=== PATIENT | female | born 1995 | race Caucasian/White ===

== ENCOUNTER 2017-09-01 00:44 | Emergency (ER) | payer OTHER ==
[2017-09-01 02:15] LABS: #Basophils 0.1 thou/uL (0.0-0.2); #Eosinphils 0.2 thou/uL (0.0-0.7); #Monocytes 1.1 thou/uL (0.11-0.59); #Neutrophils 6.8 thou/uL (1.40-6.50); %Basophils 0.5 % (0.0-1.0); %Eosinophils 1.7 % (0.0-10.0); %Lymphocytes 27.3 % (28.0-48.0); %Monocytes 9.6 % (0.0-4.0); %Neutrophils 60.9 % (31.0-61.0); Hemoglobin 14.3 g/dL (12.0-16.0); Mean Corpuscular HGB CONC 33.9 g/dL (32.0-36.0); Mean Corpuscular Hemoglobin 31.3 pg (25.0-35.0); Mean Corpuscular Volume 92.4 fl (77.0-87.0); Platelet Count 314 thou/uL (130-400); RBC Distribution Width 11.2 % (11.5-14.5); Red Blood Cell (RBC) Count 4.57 mill/uL (4.00-5.20); White Blood Cell (WBC) Count 11.1 thou/uL (4.8-10.8)
[2017-09-01] MEDS ORDERED: Acetaminophen 325 MG TAB ONE (02:27)
[2017-09-01 02:36] LABS: ALT (SGPT) 78 U/L (8-55); AST (SGOT) 43 U/L (5-34); Albumin 4.5 g/dL (3.5-5.0); Alkaline Phosphatase 65 U/L (40-150); Anion Gap 13 mmol/L (10-20); BUN (Urea Nitrogen) 8 mg/dL (7.0-18.7); Bilirubin, Total 0.3 mg/dL (0.2-1.2); Calc. Creatinine Clearance 0 mL/min (70-130); Calcium 9.5 mg/dL (7.8-10.44); Carbon Dioxide 24 mmol/L (22-29); Chloride 108 mmol/L (98-107); Estimated GFR-MDRD Greater than 90; Glucose 95 mg/dL (70-105); Magnesium 2.3 mg/dL (1.7-2.2); Protein, Total 7.5 g/dL (6.0-8.3); Sodium 141 mmol/L (136-145)
[2017-09-01 02:41] LABS: CKMB 0.9 ng/mL (0-6.6); Troponin I Less than 0.010 ng/mL (< 0.028)
[2017-09-01 04:45] LABS: Acetaminophen Less than 6.0 mcg/mL (10.0-30.0); Alcohol Less than 10 mg/dL (Less than 10); Salicylate Less than 8.0 mg/dL (15.0-30.0)
[2017-09-01] MEDS ORDERED: Ketorolac Tromethamine 30 MG/ML VIAL ONE (04:47)
[2017-09-01] MEDS ORDERED: Lorazepam 1 MG TAB ONE (04:47)
[2017-09-01 05:17] LABS: Base Excess-Venous -1.5 mmol/L (0 (+/- 2.5)); Bicarbonate (HCO3v) 22.6 mmol/L (1.0-85.0); CO2 Tension (PvCO2) 35.5 mmHg (41.0-51.0); Calcium, Ionized 1.07 mmol/L (1.12-1.32); Hemoglobin - Calc 15.4 g/dL (12.0-18.0); O2 Tension (PvO2) 89.4 mmHg (35.0-45.0); Potassium 3.8 mmol/L (3.4-4.7); T. Carbon Dioxide 23.7 mmol/L (1.0-85.0); pH (Venous) 7.412 (7.35-7.45); vO2 Saturation-calc 97.1 % (94-98)
[2017-09-01 05:35] LABS: Bilirubin Negative (Negative); Blood, Urine Negative (Negative); Clarity CLOUDY (Clear); Glucose, Urine (Dipstick) Negative (Negative); Leukocyte Moderate (Negative); Nitrite Negative (Negative); Protein, Urine (Dipstick) Negative (Neg-Trace); Specific Gravity, Urine 1.028 (1.002-1.036); pH, Urine 6.5 (5.0-9.0)
[2017-09-01 05:38] LABS: Bacteria/HPF 1+ HPF (None Seen); Hyaline Casts/LPF 0-3 HYALINE CAST LPF (0-3 Hyaline); Pathc Cast-AUWi Flag 0.58 (0-2.49); RBC/HPF 0-3 HPF (0-3); Squamous Epithelial 0-3 HPF (0-3)
[2017-09-01 05:44] LABS: Pregnancy Test - Urine (BHCG) Negative (Negative); Pregu Control Background? CLEAR/WHITE (CLR/WHITE); Pregu Control Bar Appear? YES (CONTROL BAR); Specific Gravity 1.028 (1.002-1.036)
[2017-09-01 05:46] LABS: Amphetamine Not Detected (NotDetected); Barbiturates Screen Not Detected (NotDetected); Benzodiazepine Screen Not Detected (NotDetected); Cocaine Metabolite Screen Not Detected (NotDetected); Crystals/HPF 1+ CA OXALATE HPF (Negative); Medtox Control Line Valid? VALID (VALID); Medtox Reader # READER 4; Methadone Not Detected (NotDetected); Methamphetamine Not Detected (NotDetected); Opiate Screen Not Detected (NotDetected); Oxycodone Screen Not Detected (NotDetected); Phencyclidine (PCP) Not Detected (NotDetected); THC/Cannabinoid Screen Not Detected (NotDetected); Tricyclic Screen Not Detected (NotDetected)
--- NOTE | 2017-09-01 07:59 | RAD ---
RADIOGRAPH PELVIS 1 VIEW: Date: 09/01/17 Time: 0159 hours HISTORY: 22-year-old female with left hip and pelvic pain. COMPARISON: None available. FINDINGS: There is well corticated large osseous defect involving the lateral aspect of the right iliac wing. T here is what appears to be chronic deformity of the right femoral neck, which appears foreshortened. There is also chronic-appearing thickening and irregularity of the cortex of the subtrochanteric righ t proximal femur. No definite acute, displaced pelvic fracture is identified. No major pathology of left hip. IMPRESSION: 1. No acute pathology identified. 2. Chronic deformities of right proximal femur, and right iliac wing (which has a large defect). POS: QI
--- NOTE | 2017-09-01 08:04 | RAD ---
RADIOGRAPH LEFT HIP 2 VIEWS: Date: 09/01/17 Time: 0155 hours HISTORY: 22-year-old female with left hip pain. FINDINGS: No acute fracture is identified. No dislocation. Femoral head contour is maintained. Hip joint space is maintained. There is loss of the normal varus angulation at the junction between the basicervical femoral neck and the intertrochanteric level. IMPRESSION: 1. No evidence of acute fracture, and no high grade osteoarthrosis. 2. Loss of the normal varus angulation of the proximal femur, presumably representing a chronic defo rmity. 3. However, if symptoms persist, and there is clinical suspicion for acute fracture in this location , then a CT or MRI of the left hip is recommended. POS: QI
--- NOTE | 2017-09-01 09:27 | CT ---
PRELIMINARY REPORT/[facility]/EMERGENTY AFTER-HOURS PROCEDURE CT Head Without Intravenous Contrast EXAM DATE/TIME: 09/01/2017 2:07 AM CLINICAL HISTORY: 22 years old, female; Injury or trauma; Fall; Initial encounter; Abrasion; Not specified; Patient HX: Ajay is a 22 y/o f presenting with bilateral leg pain l>r. Started this evening around 8: 30 after a f all. Also states she hit her head. She has a hx/o hip reconstruction several years ago. Denies smokin g, ETOH, drug use. Uses a walker at baseline due to theses le reasons. Currently C/O pain starting in l hip and running down l leg with dec strength and rom. Associated dizziness. No cp, SOB, fever, chi lls, edema. TECHNIQUE: Axial computed tomography images of the head/brain without intravenous contrast. COMPARISON: No relevant prior studies available. FINDINGS: Artifacts: Motion artifact limits this study. Brain: No evidence of acute intracranial hemorrhage, extraxial fluid or midline shift. No significant white matter disease. Ventricles: Unremarkable. No ventriculomegaly. Bones/joints: Unremarkable. No acute fracture. Soft tissues: Unremarkable. Sinuses: Unremarkable as visualized. No acute sinusitis. Mastoid air cells: Unremarkable as visualized. No mastoid effusion. IMPRESSION: 1. Motion artifact limits this study. 2. No evidence of acute intracranial hemorrhage, extraxial fluid or midline shift. Thank you for allowing us to participate in the care of your patient. Dictated and Authenticated by: Ricardo Dyer MD 09/01/2017 3:08 AM Central Time ([place] [employer] [place]) FINAL REPORT BRAIN CT WITHOUT IV CONTRAST: EMERGENCY AFTER HOURS EXAM TIME: 2:08 a.m. DATE: 09/01/17. FINDINGS: Motion artifact lowers the sensitivity of this study. No mass or bleed or other acute process. POS: OFF
--- NOTE | 2017-09-01 09:29 | CT ---
PRELIMINARY REPORT/[facility]/EMERGENTY AFTER-HOURS PROCEDURE CT Cervical Spine Without Intravenous Contrast EXAM DATE/TIME: 09/01/2017 2:10 AM CLINICAL HISTORY: 22 years old, female; Injury or trauma; Fall; Initial encounter; Abrasion; Patient HX: Pt is a 22 y/o f presenting with bilateral leg pain l>r. Started this evening around 8: 30 after a fall. Also state s she hit her head. She has a hx/o hip reconstruction several years ago. Denies smoking, ETOH, drug u se. Uses a walker at baseline due to theses le reasons. Currently C/O pain starting in l hip and runn ing down l leg with dec strength and rom. Associated dizziness. No cp, SOB, fever, chills, edema. TECHNIQUE: Axial computed tomography images of the cervical spine without intravenous contrast. Coronal and sagi ttal reformatted images were created and reviewed. COMPARISON: No relevant prior studies available. FINDINGS: Vertebrae: No evidence of acute fracture. Cervical spine is anatomically aligned with minimal leftwar d spinal curvature. Discs/spinal canal/neural foramina: See above. Soft tissues: Unremarkable. Lung apices: Unremarkable as visualized. IMPRESSION: 1. No evidence of acute fracture. 2. Minimal leftward cervical spine curvature - possibly normal for patient, positional or underlying muscle spasm. Thank you for allowing us to participate in the care of your patient. Dictated and Authenticated by: Ricardo Dyer MD 09/01/2017 3:23 AM Central Time ([place]) FINAL REPORT BY DR. YOUSIF EMERGENCY AFTER HOURS STUDY CT CERVICAL SPINE NONCONTRAST: HISTORY: 22-year-old female status post acute cervical trauma from fall. FINDINGS: There are no jumped or perched facets. There is no evidence of acute fracture. The vertebral body h eights are maintained. There is no prevertebral soft tissue swelling. This report agrees with the preliminary report by Dustin. IMPRESSION: No evidence of acute fracture or acute traumatic subluxation. richard POS: QI
== END 2017-09-01 10:08 | disposition home or self-care (01) ==
LOC: ERS 00:44
DX: F43.20 Adjustment disorder, unspecified (principal); F41.9 Anxiety disorder, unspecified; N39.0 Urinary tract infection, site not specified; M79.605 Pain in left leg; M79.604 Pain in right leg; F32.9 Major depressive disorder, single episode, unspecified; Z79.899 Other long term (current) drug therapy
CPT/HCPCS: 36415; 70450; 72125; 72170; 80053; 80306; 80307; 81003; 81015; 81025; 82330; 82553; 82803; 83735; 84443; 84484; 85025; 85379; 93005; 96372; J1885